=== PATIENT | male | born 1955 | race African-American/Black ===

== ENCOUNTER 2021-05-28 09:51 | Inpatient (IN) | payer OTHER, BC ==
[2021-05-28 10:29] VITALS: BMI 19.9
[2021-05-28] MEDS ORDERED: METHOCARBAMOL 500 MG TABLET PO PRN (11:23)
[2021-05-28] MEDS ORDERED: ACETAMINOPHEN 325 MG TABLET (FP) PO PRN ×2 (11:23)
[2021-05-28] MEDS ORDERED: MAGNESIUM HYDROX 2400MG/30ML ORAL SUSPENSION 30 ML CUP PO PRN (11:23)
[2021-05-28] MEDS ORDERED: MENTHOL/PHENOL 1 EACH UD MM PRN (11:23)
[2021-05-28] MEDS ORDERED: IBUPROFEN 400 MG TABLET (FP) PO PRN (11:23)
[2021-05-28] MEDS ORDERED: BISMUTH SUBSALICYLATE 524 MG/30 ML PO PRN (11:23)
[2021-05-28] MEDS ORDERED: LORazepam 1 MG TABLET PO PRN (11:23)
[2021-05-28] MEDS ORDERED: MAGNESIUM CITRATE 300 ML BOTTLE PO PRN (11:23)
[2021-05-28] MEDS: hydrOXYzine PAMOATE 25 MG CAPSULE (FP) PO SCH ×3 (14:33→22:43)
[2021-05-28] MEDS: LORazepam 2 MG TABLET PO SCH ×2 (18:41→22:43)
[2021-05-28] MEDS: APIXABAN 5 MG TABLET PO SCH (22:43)
[2021-05-28] MEDS: THIAMINE HCL 100 MG TABLET (FP) PO SCH (22:43)
[2021-05-28] MEDS: MELATONIN 5 MG TABLETS PO SCH (22:43)
[2021-05-29] MEDS: LORazepam 2 MG TABLET PO SCH ×4 (06:12→22:01)
[2021-05-29] MEDS: hydrOXYzine PAMOATE 25 MG CAPSULE (FP) PO SCH ×5 (06:13→22:02)
[2021-05-29 10:20] LABS: HEMATOCRIT 37.4 % (35.4-49); HEMOGLOBIN 12.4 GM/dL (11.7-16.9); MCH 33.6 pg (25.7-33.7); MCHC 33.1 g/dl (32.0-35.9); MEAN CELL VOLUME 101.7 fl (80-96); MEAN PLT VOLUME 8.5 fl (7.5-11.1); PLATELET COUNT 185 10^3/uL (134-434); RBC 3.68 M/mm3 (4.00-5.60); RDW 13.7 % (11.9-15.9); WHITE BLOOD COUNT 4.3 K/mm3 (4.0-10.0)
[2021-05-29 10:26] LABS: CALCIUM 8.2 mg/dL (8.5-10.1)
[2021-05-29 10:27] LABS: ALBUMIN 2.5 g/dl (3.4-5.0); BLOOD UREA NITROGEN 9.5 mg/dL (7-18)
[2021-05-29 10:30] LABS: CREATININE 0.9 mg/dL (0.55-1.3)
[2021-05-29] MEDS: PRENATAL VITAMINS W/ FOLIC ACID TABLET (FP) PO SCH (10:30)
[2021-05-29] MEDS: APIXABAN 5 MG TABLET PO SCH ×2 (10:31→22:01)
[2021-05-29] MEDS: HYDROCHLOROTHIAZIDE 25 MG TABLET (FP) PO SCH (10:31)
[2021-05-29 10:32] LABS: BILIRUBIN,TOTAL 2.8 mg/dL (0.2-1); TOT PROT 5.2 g/dl (6.4-8.2)
[2021-05-29] MEDS: MAG HYDROX/AL HYDROX/SIMETH 30 ML UNIT-DOSE CUP PO PRN (18:39)
[2021-05-29 20:33] LABS: URINE APPEARANCE CLEAR; URINE BILIRUBIN NEGATIVE (NEGATIVE); URINE COLOR YELLOW; URINE GLUCOSE (UA) NEGATIVE (NEGATIVE); URINE KETONE NEGATIVE (NEGATIVE); URINE LEUK ESTERASE NEGATIVE (NEGATIVE); URINE NITRITE NEGATIVE (NEGATIVE); URINE PROTEIN NEGATIVE (NEGATIVE)
[2021-05-29] MEDS: MELATONIN 5 MG TABLETS PO SCH (22:01)
[2021-05-29] MEDS: THIAMINE HCL 100 MG TABLET (FP) PO SCH (22:02)
[2021-05-30] MEDS: ONDANSETRON *ODT* 4 MG TABLET SL PRN ×2 (00:06→05:49)
[2021-05-30] MEDS: MAG HYDROX/AL HYDROX/SIMETH 30 ML UNIT-DOSE CUP PO PRN (01:23)
[2021-05-30] MEDS: hydrOXYzine PAMOATE 25 MG CAPSULE (FP) PO SCH (05:49)
[2021-05-30] MEDS: LORazepam 1 MG TABLET PO SCH ×4 (05:49→21:59)
[2021-05-30] MEDS ORDERED: hydrOXYzine PAMOATE 25 MG CAPSULE (FP) PO PRN (08:19)
[2021-05-30 09:38] VITALS: BP 99/72; PULSE 127; TEMP 96.9
[2021-05-30 10:43] LABS: INR 1.56 (0.83-1.09); PROTHROMBIN TIME (PATIENT) 18.6 SEC (9.7-13.0)
[2021-05-30 10:45] LABS: ALBUMIN 2.5 g/dl (3.4-5.0); CALCIUM 8.2 mg/dL (8.5-10.1)
[2021-05-30 10:49] LABS: CREATININE 0.8 mg/dL (0.55-1.3)
[2021-05-30 10:50] LABS: BILIRUBIN,TOTAL 3.8 mg/dL (0.2-1); TOT PROT 5.3 g/dl (6.4-8.2)
[2021-05-30] MEDS: HYDROCHLOROTHIAZIDE 25 MG TABLET (FP) PO SCH (11:10)
[2021-05-30] MEDS: APIXABAN 5 MG TABLET PO SCH ×2 (11:10→21:58)
[2021-05-30] MEDS: PRENATAL VITAMINS W/ FOLIC ACID TABLET (FP) PO SCH (11:11)
[2021-05-30] MEDS: MELATONIN 5 MG TABLETS PO SCH (21:58)
[2021-05-30] MEDS: THIAMINE HCL 100 MG TABLET (FP) PO SCH (21:59)
[2021-05-31] MEDS ORDERED: LORazepam 0.5 MG TABLET PO PRN
[2021-05-31] MEDS ORDERED: LORazepam 0.5 MG TABLET PO SCH (05:00)
[2021-06-01] MEDS ORDERED: LORazepam 0.5 MG TABLET PO ONE (05:00)
== END 2021-05-30 16:00 | disposition short-term general hospital (02) | DRG 897 ==
LOC: YASAS 09:51 → Y3N 13:16
PROVIDERS: ADMIT Allergy & Immunology; ATTEND Allergy & Immunology
PROC: HZ2ZZZZ Detoxification Services for Substance Abuse Treatment (ICD-10-PCS; principal; 2021-05-28)
DX: F10.230 Alcohol dependence with withdrawal, uncomplicated (principal); R07.89 Other chest pain; R00.0 Tachycardia, unspecified; M54.5 Low back pain; G89.29 Other chronic pain; Z87.440 Personal history of urinary (tract) infections; Z86.711 Personal history of pulmonary embolism; Z79.01 Long term (current) use of anticoagulants; Z86.718 Personal history of other venous thrombosis and embolism; Z90.79 Acquired absence of other genital organ(s)
CPT/HCPCS: 36415; 71046-TC-FY; 80053; 81003; 85027; 85610; 86780; 93005; 93010; C9803; Q0162; U0003; U0005

== ENCOUNTER 2021-05-30 11:08 | Inpatient (IN) | payer BC, OTHER ==
[2021-05-30] MEDS ORDERED: SODIUM CHLORIDE 1,000 ML IV STA (12:20)
[2021-05-30] MEDS ORDERED: chlordiazePOXIDE HCL 25 MG CAPSULE PO ONE (12:31)
[2021-05-30] MEDS ORDERED: CHLORDIAZEPOXIDE 20 MG, CHLORDIAZEPOXIDE 5 MG PO ONE (12:45)
[2021-05-30] MEDS ORDERED: chlordiazePOXIDE HCL 10 MG CAPSULE ONE (14:12)
[2021-05-30] MEDS ORDERED: chlordiazePOXIDE 5 MG CAPSULE ONE (14:13)
[2021-05-30] MEDS ORDERED: HEPARIN NA (PORCINE) 5,000 UNITS/ML 1ML VIAL IVPUSH PRN ×2 (16:54)
[2021-05-30] MEDS ORDERED: HEPARIN NA (PORCINE) 5,000 UNITS/ML 1ML VIAL IVPUSH ONE (16:54)
[2021-05-30] MEDS ORDERED: HEPARIN - 25,000 UNIT in SODIUM CHLORIDE 495 ML IV SCH (17:00)
[2021-05-30] MEDS ORDERED: HEPARIN NA (PORCINE) 5,000 UNITS/ML 1ML VIAL ONE (17:01)
[2021-05-30] MEDS ORDERED: HEPARIN INFUSION - 25,000 UNITS/500 ML INFUS.BAG IVPB ONE (17:02)
[2021-05-30] MEDS: ENOXAPARIN NA (PORCINE) 60 MG/0.6 ML DISP.SYRIN SQ SCH ×2 (17:50→23:30)
[2021-05-30] MEDS ORDERED: ENOXAPARIN NA (PORCINE) 60 MG/0.6 ML DISP.SYRIN SQ ONE (17:59)
[2021-05-31] MEDS ORDERED: ENOXAPARIN NA (PORCINE) 60 MG/0.6 ML DISP.SYRIN SQ ONE ×3 (00:26→21:32)
[2021-05-31 06:39] LABS: BASO % 0.6 % (0-2.0); EOS % 1.6 % (0-4.5); HEMATOCRIT 37.5 % (35.4-49); HEMOGLOBIN 12.5 GM/dL (11.7-16.9); LYMPH % 19.3 % (8-40); MCH 33.8 pg (25.7-33.7); MCHC 33.2 g/dl (32.0-35.9); MEAN CELL VOLUME 101.7 fl (80-96); MEAN PLT VOLUME 8.4 fl (7.5-11.1); MONO % 14.3 % (3.8-10.2); NEUT % 64.2 % (42.8-82.8); PLATELET COUNT 177 10^3/uL (134-434); RBC 3.69 M/mm3 (4.00-5.60); RDW 13.8 % (11.9-15.9); WHITE BLOOD COUNT 8.4 K/mm3 (4.0-10.0)
[2021-05-31 07:00] LABS: ALBUMIN 2.3 g/dl (3.4-5.0); BLOOD UREA NITROGEN 16.6 mg/dL (7-18); CALCIUM 7.8 mg/dL (8.5-10.1)
[2021-05-31 07:01] LABS: MAGNESIUM 2.3 mg/dL (1.8-2.4)
[2021-05-31 07:03] LABS: CREATININE 0.8 mg/dL (0.55-1.3)
[2021-05-31 07:04] LABS: PHOSPHOROUS 2.1 mg/dL (2.5-4.9)
[2021-05-31 07:05] LABS: BILIRUBIN,TOTAL 2.8 mg/dL (0.2-1); TOT PROT 4.9 g/dl (6.4-8.2)
[2021-05-31] MEDS ORDERED: FOLIC ACID 1 MG TABLET (FP) ONE (08:50)
[2021-05-31] MEDS ORDERED: THIAMINE HCL 100 MG TABLET (FP) ONE (08:50)
[2021-05-31] MEDS ORDERED: MULTIVITAMINS (DAILY MVI) TABLET (FP) ONE (08:50)
[2021-05-31] MEDS: MULTIVITAMINS (DAILY MVI) TABLET (FP) PO SCH (09:48)
[2021-05-31] MEDS: FOLIC ACID 1 MG TABLET (FP) PO SCH (09:48)
[2021-05-31] MEDS: THIAMINE HCL 100 MG TABLET (FP) PO SCH (09:48)
[2021-05-31] MEDS: ENOXAPARIN NA (PORCINE) 60 MG/0.6 ML DISP.SYRIN SQ SCH ×2 (09:48→21:38)
[2021-05-31] MEDS ORDERED: INSULIN (LEVEMIR) 100 UNITS/ML UNITS SQ ONE (11:15)
[2021-05-31] MEDS ORDERED: ACETAMINOPHEN 325 MG TABLET (FP) PO PRN (13:16)
[2021-05-31] MEDS ORDERED: IBUPROFEN 400 MG TABLET (FP) PO ONE (14:44)
[2021-05-31] MEDS: IBUPROFEN 400 MG TABLET (FP) PO SCH (14:54)
[2021-05-31] MEDS ORDERED: SODIUM PHOSPHATE - 15 MM in SODIUM CHLORIDE 250 ML IVPB ONE (15:00)
[2021-06-01] MEDS: IBUPROFEN 400 MG TABLET (FP) PO SCH ×2 (01:11→10:33)
[2021-06-01 01:56] VITALS: BMI 19.6
[2021-06-01] MEDS: MULTIVITAMINS (DAILY MVI) TABLET (FP) PO SCH (10:35)
[2021-06-01] MEDS: FOLIC ACID 1 MG TABLET (FP) PO SCH (10:35)
[2021-06-01] MEDS: THIAMINE HCL 100 MG TABLET (FP) PO SCH (10:35)
[2021-06-01] MEDS: ENOXAPARIN NA (PORCINE) 60 MG/0.6 ML DISP.SYRIN SQ SCH ×2 (10:35→21:25)
[2021-06-01 11:10] LABS: HEMATOCRIT 34.9 % (35.4-49); HEMOGLOBIN 11.7 GM/dL (11.7-16.9); MCH 33.5 pg (25.7-33.7); MCHC 33.6 g/dl (32.0-35.9); MEAN CELL VOLUME 99.8 fl (80-96); MEAN PLT VOLUME 7.6 fl (7.5-11.1); PLATELET COUNT 160 10^3/uL (134-434); RDW 14.1 % (11.9-15.9)
[2021-06-01 11:33] LABS: ALBUMIN 2.3 g/dl (3.4-5.0)
[2021-06-01 11:36] LABS: CREATININE 0.8 mg/dL (0.55-1.3)
[2021-06-01 11:37] LABS: TOT PROT 5.1 g/dl (6.4-8.2)
[2021-06-01 11:40] LABS: CALCIUM 7.9 mg/dL (8.5-10.1)
[2021-06-01] MEDS ORDERED: IBUPROFEN 400 MG TABLET (FP) PO PRN (15:15)
[2021-06-01] MEDS ORDERED: TRIMETHOBENZAMIDE HCL 200MG/2ML INJ IM PRN (15:56)
[2021-06-01] MEDS: LORazepam 0.5 MG TABLET PO PRN ×2 (16:05→21:24)
[2021-06-02 06:45] LABS: HEMOGLOBIN 9.9 GM/dL (11.7-16.9); MCH 30.9 pg (25.7-33.7); MCHC 33.1 g/dl (32.0-35.9); MEAN CELL VOLUME 93.2 fl (80-96); MEAN PLT VOLUME 9.5 fl (7.5-11.1); PLATELET COUNT 245 10^3/uL (134-434); RBC 3.22 M/mm3 (4.00-5.60); RDW 12.9 % (11.9-15.9); WHITE BLOOD COUNT 14.7 K/mm3 (4.0-10.0)
[2021-06-02 06:59] LABS: CHLORIDE 111 mmol/L (98-107); SODIUM 140 mmol/L (136-145)
[2021-06-02 07:06] LABS: ALBUMIN 2.5 g/dl (3.4-5.0); ANION GAP 12 MMOL/L (8-16); CO2 17 mmol/L (21-32); GLUCOSE,RANDOM 145 mg/dL (74-106); MAGNESIUM 2.2 mg/dL (1.8-2.4)
[2021-06-02 07:09] LABS: CREATININE 6.3 mg/dL (0.55-1.3); PHOSPHOROUS 5.2 mg/dL (2.5-4.9); SGPT/ALT 45 U/L (13-61)
[2021-06-02 07:10] LABS: SGOT/AST 33 U/L (15-37)
[2021-06-02 07:11] LABS: BILIRUBIN,TOTAL 0.2 mg/dL (0.2-1); TOT PROT 5.3 g/dl (6.4-8.2)
[2021-06-02 07:15] LABS: ALK PHOS 80 U/L (45-117); BLOOD UREA NITROGEN 134.3 mg/dL (7-18); CALCIUM 6.9 mg/dL (8.5-10.1)
[2021-06-02 09:30] LABS: BASO % 0.7 % (0-2.0); HEMATOCRIT 34.1 % (35.4-49); HEMOGLOBIN 11.7 GM/dL (11.7-16.9); LYMPH % 23.9 % (8-40); MCH 34.3 pg (25.7-33.7); MCHC 34.3 g/dl (32.0-35.9); MEAN PLT VOLUME 8.4 fl (7.5-11.1); MONO % 12.3 % (3.8-10.2); NEUT % 62.1 % (42.8-82.8); PLATELET COUNT 185 10^3/uL (134-434); RBC 3.41 M/mm3 (4.00-5.60); RDW 13.9 % (11.9-15.9); WHITE BLOOD COUNT 5.4 K/mm3 (4.0-10.0)
[2021-06-02] MEDS ORDERED: PT OWN MED DRAWER 7, Y5N ONE (09:48)
[2021-06-02] MEDS: MULTIVITAMINS (DAILY MVI) TABLET (FP) PO SCH (09:53)
[2021-06-02] MEDS: THIAMINE HCL 100 MG TABLET (FP) PO SCH (09:53)
[2021-06-02] MEDS: ENOXAPARIN NA (PORCINE) 60 MG/0.6 ML DISP.SYRIN SQ SCH (09:53)
[2021-06-02 09:59] LABS: CALCIUM 7.9 mg/dL (8.5-10.1)
[2021-06-02 10:00] LABS: ALBUMIN 2.2 g/dl (3.4-5.0)
[2021-06-02 10:03] LABS: CREATININE 0.9 mg/dL (0.55-1.3)
[2021-06-02 10:04] LABS: BILIRUBIN,TOTAL 1.7 mg/dL (0.2-1); TOT PROT 4.9 g/dl (6.4-8.2)
[2021-06-02 10:06] LABS: BLOOD UREA NITROGEN 11.6 mg/dL (7-18)
[2021-06-02 10:37] VITALS: BP 111/71; PULSE 87; TEMP 98.5
[2021-06-02] MEDS: FOLIC ACID 1 MG TABLET (FP) PO SCH (13:35)
== END 2021-06-02 18:44 | disposition other institution (70) | DRG 176 ==
LOC: JER 11:08 → JERBED 18:38 → J4W 05-31 22:06
PROVIDERS: ATTEND Internal Medicine
PROC: HZ2ZZZZ Detoxification Services for Substance Abuse Treatment (ICD-10-PCS; principal; 2021-05-30)
DX: I26.99 Other pulmonary embolism without acute cor pulmonale (principal); F10.239 Alcohol dependence with withdrawal, unspecified; I27.82 Chronic pulmonary embolism; I10 Essential (primary) hypertension
CPT/HCPCS: 36415; 71275-TC; 80053; 82550; 83735; 84100; 84484; 85025; 85027; 93005; 93010; 93306-TC; 93971-TC; 99285-25; C9803; J1644; Q9967; U0003; U0005

== ENCOUNTER 2021-06-02 18:34 | Inpatient (IN) | payer OTHER, BC ==
[2021-06-02 19:23] VITALS: BMI 19.6
[2021-06-02] MEDS ORDERED: IBUPROFEN 400 MG TABLET (FP) PO PRN (19:54)
[2021-06-02] MEDS ORDERED: guaiFENesin 200 MG/10 ML 10 ML UNIT-DOSE CUPS PO PRN (19:54)
[2021-06-02] MEDS ORDERED: ACETAMINOPHEN 325 MG TABLET (FP) PO PRN (19:54)
[2021-06-02] MEDS ORDERED: MAGNESIUM HYDROX 2400MG/30ML ORAL SUSPENSION 30 ML CUP PO PRN (19:54)
[2021-06-02] MEDS ORDERED: P-EPHED 60MG/TRIPROLIDI 2.5MG TABLET PO PRN (19:54)
[2021-06-02] MEDS ORDERED: LOPERAMIDE HCL 2 MG CAPSULE PO PRN (19:54)
[2021-06-02] MEDS ORDERED: MAG HYDROX/AL HYDROX/SIMETH 30 ML UNIT-DOSE CUP PO PRN (19:54)
[2021-06-02] MEDS ORDERED: MAGNESIUM CITRATE 300 ML BOTTLE PO PRN (19:54)
[2021-06-02] MEDS: MELATONIN 5 MG TABLETS PO SCH (22:42)
[2021-06-02] MEDS: THIAMINE HCL 100 MG TABLET (FP) PO SCH (22:42)
[2021-06-03] MEDS: PRENATAL VITAMINS W/ FOLIC ACID TABLET (FP) PO SCH (10:16)
[2021-06-03] MEDS: HYDROCHLOROTHIAZIDE 25 MG TABLET (FP) PO SCH (10:16)
[2021-06-03] MEDS ORDERED: PT OWN MED DRAWER 7, Y5N ONE (18:17)
[2021-06-03] MEDS: RIVAROXABAN 10 MG TABLET PO SCH (19:15)
[2021-06-03] MEDS: MELATONIN 5 MG TABLETS PO SCH (21:33)
[2021-06-03] MEDS: THIAMINE HCL 100 MG TABLET (FP) PO SCH (21:33)
[2021-06-04] MEDS: PRENATAL VITAMINS W/ FOLIC ACID TABLET (FP) PO SCH (09:52)
[2021-06-04] MEDS: HYDROCHLOROTHIAZIDE 25 MG TABLET (FP) PO SCH (09:52)
[2021-06-04] MEDS ORDERED: PT OWN MED DRAWER 7, Y5N ONE (16:52)
[2021-06-04] MEDS: RIVAROXABAN 10 MG TABLET PO SCH (17:36)
[2021-06-04] MEDS: THIAMINE HCL 100 MG TABLET (FP) PO SCH (21:16)
[2021-06-04] MEDS: MELATONIN 5 MG TABLETS PO SCH (21:16)
[2021-06-05] MEDS: PRENATAL VITAMINS W/ FOLIC ACID TABLET (FP) PO SCH (10:02)
[2021-06-05] MEDS: HYDROCHLOROTHIAZIDE 25 MG TABLET (FP) PO SCH (10:02)
[2021-06-05] MEDS: RIVAROXABAN 10 MG TABLET PO SCH (18:10)
[2021-06-05] MEDS ORDERED: PT OWN MED DRAWER 7, Y5N ONE ×2 (19:38→20:04)
[2021-06-05] MEDS: MELATONIN 5 MG TABLETS PO SCH (22:19)
[2021-06-05] MEDS: THIAMINE HCL 100 MG TABLET (FP) PO SCH (22:20)
[2021-06-06] MEDS: RIVAROXABAN 10 MG TABLET PO SCH ×2 (00:58→17:50)
[2021-06-06] MEDS: HYDROCHLOROTHIAZIDE 25 MG TABLET (FP) PO SCH (09:59)
[2021-06-06] MEDS: PRENATAL VITAMINS W/ FOLIC ACID TABLET (FP) PO SCH (09:59)
[2021-06-06] MEDS ORDERED: PT OWN MED DRAWER 7, Y5N ONE (17:50)
[2021-06-06] MEDS: THIAMINE HCL 100 MG TABLET (FP) PO SCH (21:10)
[2021-06-06] MEDS: MELATONIN 5 MG TABLETS PO SCH (21:10)
[2021-06-06] MEDS: hydrOXYzine PAMOATE 25 MG CAPSULE (FP) PO PRN (21:12)
[2021-06-07] MEDS ORDERED: PT OWN MED DRAWER 7, Y5N ONE ×2 (08:49→17:01)
[2021-06-07] MEDS: HYDROCHLOROTHIAZIDE 25 MG TABLET (FP) PO SCH (10:06)
[2021-06-07] MEDS: PRENATAL VITAMINS W/ FOLIC ACID TABLET (FP) PO SCH (10:07)
[2021-06-07] MEDS: RIVAROXABAN 10 MG TABLET PO SCH (17:01)
[2021-06-07] MEDS: hydrOXYzine PAMOATE 25 MG CAPSULE (FP) PO PRN (21:17)
[2021-06-07] MEDS: MELATONIN 5 MG TABLETS PO SCH (21:17)
[2021-06-07] MEDS: THIAMINE HCL 100 MG TABLET (FP) PO SCH (21:17)
[2021-06-08] MEDS: PRENATAL VITAMINS W/ FOLIC ACID TABLET (FP) PO SCH (09:42)
[2021-06-08] MEDS: HYDROCHLOROTHIAZIDE 25 MG TABLET (FP) PO SCH (09:42)
[2021-06-08] MEDS ORDERED: PT OWN MED DRAWER 7, Y5N ONE ×2 (18:09→18:14)
[2021-06-08] MEDS: RIVAROXABAN 10 MG TABLET PO SCH (18:13)
[2021-06-08] MEDS: MELATONIN 5 MG TABLETS PO SCH (21:18)
[2021-06-08] MEDS: THIAMINE HCL 100 MG TABLET (FP) PO SCH (21:18)
[2021-06-08] MEDS: hydrOXYzine PAMOATE 25 MG CAPSULE (FP) PO PRN (21:19)
[2021-06-09] MEDS: HYDROCHLOROTHIAZIDE 25 MG TABLET (FP) PO SCH (09:49)
[2021-06-09] MEDS: PRENATAL VITAMINS W/ FOLIC ACID TABLET (FP) PO SCH (09:49)
[2021-06-09] MEDS ORDERED: PT OWN MED DRAWER 7, Y5N ONE (17:14)
[2021-06-09] MEDS: RIVAROXABAN 10 MG TABLET PO SCH (17:15)
[2021-06-09] MEDS: MELATONIN 5 MG TABLETS PO SCH (21:03)
[2021-06-09] MEDS: THIAMINE HCL 100 MG TABLET (FP) PO SCH (21:03)
[2021-06-09] MEDS: hydrOXYzine PAMOATE 25 MG CAPSULE (FP) PO PRN (21:04)
[2021-06-10] MEDS: PRENATAL VITAMINS W/ FOLIC ACID TABLET (FP) PO SCH (09:44)
[2021-06-10] MEDS: HYDROCHLOROTHIAZIDE 25 MG TABLET (FP) PO SCH (09:44)
[2021-06-10] MEDS ORDERED: PT OWN MED DRAWER 7, Y5N ONE (18:12)
[2021-06-10] MEDS: RIVAROXABAN 10 MG TABLET PO SCH (18:12)
[2021-06-10] MEDS: hydrOXYzine PAMOATE 25 MG CAPSULE (FP) PO PRN (22:31)
[2021-06-10] MEDS: MELATONIN 5 MG TABLETS PO SCH (22:31)
[2021-06-10] MEDS: THIAMINE HCL 100 MG TABLET (FP) PO SCH (22:31)
[2021-06-11] MEDS: HYDROCHLOROTHIAZIDE 25 MG TABLET (FP) PO SCH (10:05)
[2021-06-11] MEDS: PRENATAL VITAMINS W/ FOLIC ACID TABLET (FP) PO SCH (10:05)
[2021-06-11] MEDS ORDERED: PT OWN MED DRAWER 7, Y5N ONE (17:29)
[2021-06-11] MEDS: RIVAROXABAN 10 MG TABLET PO SCH ×2 (17:44→18:06)
[2021-06-11] MEDS: MELATONIN 5 MG TABLETS PO SCH (21:46)
[2021-06-11] MEDS: THIAMINE HCL 100 MG TABLET (FP) PO SCH (21:47)
[2021-06-11] MEDS: hydrOXYzine PAMOATE 25 MG CAPSULE (FP) PO PRN (21:47)
[2021-06-12] MEDS: PRENATAL VITAMINS W/ FOLIC ACID TABLET (FP) PO SCH (09:59)
[2021-06-12] MEDS: HYDROCHLOROTHIAZIDE 25 MG TABLET (FP) PO SCH (09:59)
[2021-06-12] MEDS ORDERED: PT OWN MED DRAWER 7, Y5N ONE (16:34)
[2021-06-12] MEDS: RIVAROXABAN 10 MG TABLET PO SCH (17:58)
[2021-06-12] MEDS: MELATONIN 5 MG TABLETS PO SCH (21:02)
[2021-06-12] MEDS: THIAMINE HCL 100 MG TABLET (FP) PO SCH (21:02)
[2021-06-12] MEDS: hydrOXYzine PAMOATE 25 MG CAPSULE (FP) PO PRN (21:03)
[2021-06-13] MEDS: PRENATAL VITAMINS W/ FOLIC ACID TABLET (FP) PO SCH (10:11)
[2021-06-13] MEDS: HYDROCHLOROTHIAZIDE 25 MG TABLET (FP) PO SCH (10:11)
[2021-06-13] MEDS ORDERED: PT OWN MED DRAWER 7, Y5N ONE (17:18)
[2021-06-13] MEDS: RIVAROXABAN 10 MG TABLET PO SCH (17:54)
[2021-06-13] MEDS: MELATONIN 5 MG TABLETS PO SCH (21:35)
[2021-06-13] MEDS: hydrOXYzine PAMOATE 25 MG CAPSULE (FP) PO PRN (21:36)
[2021-06-13] MEDS: THIAMINE HCL 100 MG TABLET (FP) PO SCH (21:36)
[2021-06-14] MEDS: HYDROCHLOROTHIAZIDE 25 MG TABLET (FP) PO SCH (09:47)
[2021-06-14] MEDS: PRENATAL VITAMINS W/ FOLIC ACID TABLET (FP) PO SCH (09:47)
[2021-06-14] MEDS: RIVAROXABAN 10 MG TABLET PO SCH (18:45)
[2021-06-14] MEDS ORDERED: PT OWN MED DRAWER 7, Y5N ONE (19:11)
[2021-06-14] MEDS: hydrOXYzine PAMOATE 25 MG CAPSULE (FP) PO PRN (21:17)
[2021-06-14] MEDS: MELATONIN 5 MG TABLETS PO SCH (21:17)
[2021-06-14] MEDS: THIAMINE HCL 100 MG TABLET (FP) PO SCH (21:17)
[2021-06-15 07:01] VITALS: TEMP 97.3
[2021-06-15 09:01] VITALS: BP 111/78; PULSE 102
[2021-06-15] MEDS: HYDROCHLOROTHIAZIDE 25 MG TABLET (FP) PO SCH (09:41)
[2021-06-15] MEDS: PRENATAL VITAMINS W/ FOLIC ACID TABLET (FP) PO SCH (09:41)
== END 2021-06-15 09:44 | disposition home or self-care (01) | DRG 895 ==
LOC: YASAS 18:34 → Y3E 21:43
PROVIDERS: ADMIT Allergy & Immunology; ATTEND Allergy & Immunology
PROC: HZ42ZZZ Group Counseling for Substance Abuse Treatment, Cognitive-Behavioral (ICD-10-PCS; principal; 2021-06-02)
DX: F10.20 Alcohol dependence, uncomplicated (principal); I26.99 Other pulmonary embolism without acute cor pulmonale; I27.82 Chronic pulmonary embolism; I10 Essential (primary) hypertension; C61 Malignant neoplasm of prostate; R00.0 Tachycardia, unspecified; M54.5 Low back pain; G89.29 Other chronic pain; Z87.891 Personal history of nicotine dependence; Z86.718 Personal history of other venous thrombosis and embolism; Z79.01 Long term (current) use of anticoagulants

== ENCOUNTER 2024-01-18 23:36 | Inpatient (IN) | payer BC ==
[2024-01-19 00:12] VITALS: BMI 20.5
[2024-01-19] MEDS ORDERED: NALOXONE HCL (KLOXXADO) 8 MG SPRAY NS PRN (00:47)
[2024-01-19] MEDS ORDERED: BISMUTH SUBSALICYLATE 524 MG/30 ML PO PRN (00:47)
[2024-01-19] MEDS ORDERED: guaiFENesin 600 MG TABLET.ER (FP) PO PRN (00:47)
[2024-01-19] MEDS ORDERED: IBUPROFEN 600 MG TABLET (FP) PO PRN (00:47)
[2024-01-19] MEDS ORDERED: MAG HYDROX/AL HYDROX/SIMETH 30 ML UNIT-DOSE CUP PO PRN (00:47)
[2024-01-19] MEDS ORDERED: LOPERAMIDE HCL 2 MG CAPSULE PO PRN (00:47)
[2024-01-19] MEDS ORDERED: DICYCLOMINE HCL 10 MG CAPSULE PO PRN (00:47)
[2024-01-19] MEDS ORDERED: MAGNESIUM HYDROX 2400MG/30ML ORAL SUSPENSION 30 ML CUP PO PRN (00:47)
[2024-01-19] MEDS ORDERED: ACETAMINOPHEN 325 MG TABLET (FP) PO PRN (00:47)
[2024-01-19] MEDS ORDERED: ONDANSETRON *ODT* 4 MG TABLET SL PRN (00:47)
[2024-01-19] MEDS ORDERED: BENZOCAINE/MENTHOL (CHLORASEPTIC ) LOZENGE MM PRN (00:47)
[2024-01-19] MEDS ORDERED: IBUPROFEN 400 MG TABLET (FP) PO PRN (00:47)
[2024-01-19] MEDS ORDERED: POLYETHYLENE GLYCOL (HEALTHYLAX) 3350 17 GM PACKET PO PRN (00:47)
[2024-01-19] MEDS ORDERED: BENZONATATE 200 MG CAPSULE PO PRN (00:47)
[2024-01-19] MEDS ORDERED: NALOXONE HCL 0.4 MG/ML VIAL IM PRN (00:47)
[2024-01-19] MEDS ORDERED: LORazepam 2 MG TABLET PO SCH (05:00)
[2024-01-19] MEDS: LORazepam 1 MG TABLET PO SCH (06:00)
[2024-01-19] MEDS: PRENATAL VITAMINS W/ FOLIC ACID TABLET (FP) PO SCH (10:05)
[2024-01-19 11:05] LABS: HEMATOCRIT 38.1 % (35.4-49); HEMOGLOBIN 12.7 GM/dL (11.7-16.9); MCH 32.1 pg (25.7-33.7); MCHC 33.4 g/dl (32.0-35.9); MEAN CELL VOLUME 96.2 fl (80-96); MEAN PLT VOLUME 8.1 fl (7.5-11.1); PLATELET COUNT 180 10^3/uL (134-434); RBC 3.96 M/mm3 (4.00-5.60); RDW 15.9 % (11.9-15.9); WHITE BLOOD COUNT 5.9 K/mm3 (4.0-10.0)
[2024-01-19 11:06] LABS: CHLORIDE 93 mmol/L (98-107); POTASSIUM 3.4 mmol/L (3.5-5.1); SODIUM 133 mmol/L (136-145)
[2024-01-19 11:15] LABS: CALCIUM 8.2 mg/dL (8.5-10.1)
[2024-01-19 11:16] LABS: ALBUMIN 2.9 g/dl (3.4-5.0); ANION GAP 9 mmol/L (4-13); BLOOD UREA NITROGEN 14.8 mg/dL (7-18); CO2 30 mmol/L (21-32); GLUCOSE,RANDOM 105 mg/dL (74-106); SGOT/AST 279 U/L (15-37)
[2024-01-19 11:18] LABS: BILIRUBIN,TOTAL 2.2 mg/dL (0.2-1); TOT PROT 6.2 g/dl (6.4-8.2)
[2024-01-19 11:19] LABS: ALK PHOS 177 U/L (45-117); SGPT/ALT 130 U/L (13-61)
[2024-01-19] MEDS: FAMOTIDINE 20 MG TABLET PO SCH (11:28)
[2024-01-19] MEDS: POTASSIUM CHLORIDE ORAL LIQUID 20 MEQ/15 ML PO SCH (15:20)
[2024-01-19] MEDS: MELATONIN 5 MG TABLETS PO SCH (22:56)
[2024-01-19] MEDS: THIAMINE HCL 100 MG TABLET (FP) PO SCH (22:56)
[2024-01-20] MEDS: LORazepam 1 MG TABLET PO SCH (05:19)
[2024-01-20] MEDS: LORazepam 1 MG TABLET PO PRN (08:53)
[2024-01-20] MEDS: FAMOTIDINE 20 MG TABLET PO SCH (17:44)
[2024-01-21] MEDS ORDERED: LORazepam 0.5 MG TABLET PO PRN
[2024-01-21] MEDS: LORazepam 0.5 MG TABLET PO SCH (05:49)
[2024-01-21 13:19] LABS: POTASSIUM 3.9 mmol/L (3.5-5.1)
[2024-01-21 13:47] LABS: CALCIUM 8.2 mg/dL (8.5-10.1)
[2024-01-21 13:48] LABS: ALBUMIN 2.7 g/dl (3.4-5.0); BLOOD UREA NITROGEN 12.5 mg/dL (7-18)
[2024-01-21 13:51] LABS: BILIRUBIN,TOTAL 1.4 mg/dL (0.2-1); TOT PROT 5.6 g/dl (6.4-8.2)
[2024-01-22] MEDS: LORazepam 0.5 MG TABLET PO ONE (05:29)
[2024-01-22 09:11] VITALS: BP 122/85; PULSE 83; RESP 16; TEMP 96.8
== END 2024-01-22 09:50 | disposition home or self-care (01) | DRG 897 ==
LOC: YASAS 23:36 → Y6N 01-19 01:09
PROVIDERS: ADMIT Allergy & Immunology; ATTEND Allergy & Immunology
PROC: HZ2ZZZZ Detoxification Services for Substance Abuse Treatment (ICD-10-PCS; principal; 2024-01-19)
DX: F10.230 Alcohol dependence with withdrawal, uncomplicated (principal); K21.9 Gastro-esophageal reflux disease without esophagitis; E87.6 Hypokalemia; L84 Corns and callosities; M54.50 Low back pain, unspecified; G89.29 Other chronic pain; R74.8 Abnormal levels of other serum enzymes; Z85.46 Personal history of malignant neoplasm of prostate; Z86.11 Personal history of tuberculosis; Z87.891 Personal history of nicotine dependence
CPT/HCPCS: 36415; 71046-TC-FY; 80053; 80305; 80307; 82746; 84132; 84450; 85027; 86780; 87635; 87811; 93005; 93010